=== PATIENT | female | born 1970 | race Two or more races ===

== ENCOUNTER 2022-11-22 13:50 | Emergency (ER) | payer OTHER ==
[~2022-11-22] VITALS: Ht 157.5 cm; Wt 98.2 kg
[2022-11-22] MEDS ORDERED: METF-1211 PO (14:09)
[2022-11-22] MEDS ORDERED: AMLO-383 PO (14:09)
[2022-11-22] MEDS ORDERED: ATOR10TA PO (14:09)
[2022-11-22] MEDS ORDERED: ASPI-1450 PO (14:09)
[2022-11-22 14:37] LABS: COVID AG,FIA SOURCE NASAL SWAB
[2022-11-22 15:00] LABS: INFLUENZA TYPE A NEGATIVE FOR TYPE A (NEGATIVE); INFLUENZA TYPE B NEGATIVE FOR TYPE B (NEGATIVE)
[2022-11-22 15:44] VITALS: BP 144/78
[2022-11-22] MEDS ORDERED: BENZ-227 PO (15:48)
[2022-11-22] MEDS ORDERED: ACET-66 PO (15:48)
[2022-11-22] MEDS ORDERED: BENZ1LOZ77 PO (15:48)
== END 2022-11-22 15:56 | disposition home or self-care (01) ==
LOC: EMS 13:50
DX: J06.9 Acute upper respiratory infection, unspecified (principal); E11.9 Type 2 diabetes mellitus without complications; E78.00 Pure hypercholesterolemia, unspecified; I10 Essential (primary) hypertension; Z98.890 Other specified postprocedural states; Z20.822 Contact with and (suspected) exposure to COVID-19
CPT/HCPCS: 71045; 82962; 87804; 99284

== ENCOUNTER 2023-10-08 18:03 | Emergency (ER) | payer OTHER ==
[~2023-10-08] VITALS: Ht 157.5 cm; Wt 99.0 kg
[~2023-10-08 18:03] MED LIST: ACET-66 PO; AMLO-383 PO; ASPI-1450 PO; ATOR10TA PO; BENZ-227 PO; CEPACLZ PO; METF-1211 PO
[2023-10-08 18:16] VITALS: TEMP 98.3
[2023-10-08 19:36] LABS: BAND NEUTROPHILS % (MANUAL) 0 % (0-5)
[2023-10-08 19:51] LABS: HEMATOCRIT 38.8 % (36-46); MEAN CORPUSCULAR HEMOGLOBIN 29.5 pg (26.0-34.0); MEAN CORPUSCULAR HGB CONC 33.5 G/dL (31.0-37.0); MEAN CORPUSCULAR VOLUME 88 fL (80-100); PLATELET COUNT (AUTO) 259 K/uL (150-450); RED BLOOD CELL COUNT(AUTO) 4.42 MIL/uL (4.00-5.20); RED CELL DISTRIBUTION WIDTH 14.4 % (11.5-14.5); WHITE BLOOD COUNT (AUTO) 8.8 K/uL (4.5-11.0)
[2023-10-08 19:58] LABS: ANION GAP 6 mmol/L (8-16); CALCIUM, TOTAL 9.1 mg/dL (8.8-10.5); CARBON DIOXIDE 29 mmol/L (22-29); CHLORIDE 104 mmol/L (98-107); CREATININE 0.81 mg/dL (0.60-1.30); GLOMERULAR FILTR. RATE CALC > 60 mL/min (>60); GLUCOSE,RANDOM 109 mg/dL (70-110); POTASSIUM 3.7 mmol/L (3.5-5.1); SODIUM SERUM 139 mmol/L (136-145); UREA NITROGEN, BLOOD 15 mg/dL (7-18)
[2023-10-08 20:04] LABS: ALANINE AMINOTRANSFERASE 28 U/L (12-78); ALBUMIN 4.2 g/dL (3.4-5.0); ALKALINE PHOSPHATASE 151 U/L (46-116); ASPARTATE AMINOTRANSFERASE 16 U/L (15-37); BILIRUBIN,TOTAL 0.3 mg/dL (0.1-1.0); TOTAL PROTEIN, SERUM 8.5 g/dL (6.4-8.2)
[2023-10-08 20:11] LABS: EOSINOPHILS % (MANUAL) 4 % (1-6); LYMPHOCYTES % (MANUAL) 33 % (22-44); MONOCYTES % (MANUAL) 6 % (2-9); RBC MORPHOLOGY COMMENT NORMAL RBC MORPH; SEGMENTED NEUTROPHILS % 57 % (40-70); TOTAL CELLS COUNTED 100
[2023-10-08 21:45] VITALS: BP 155/79; PULSE 81; RESP 16
[2023-10-08] MEDS ORDERED: IBUP-1492 PO (23:07)
[2023-10-08] MEDS ORDERED: KETOROLAC TROMETHAMINE 30 MG/ML VIAL IM ONE (23:15)
== END 2023-10-08 23:34 | disposition home or self-care (01) ==
LOC: EMS 18:04
DX: M77.12 Lateral epicondylitis, left elbow (principal); E11.9 Type 2 diabetes mellitus without complications; E78.00 Pure hypercholesterolemia, unspecified; I10 Essential (primary) hypertension
CPT/HCPCS: 99284; 80053; 85007; 85027; 36415; 73080; 96372; J1885